=== PATIENT | female | born 1985 | race African-American/Black ===

== ENCOUNTER 2019-12-26 11:44 | Emergency (ER) | payer MEDICAID ==
[~2019-12-26] VITALS: Ht 165.1 cm; Wt 54.4 kg
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
--- NOTE | 2019-12-26 11:52 | NUR ---
DR MCCURDY AT BEDSIDE FOR EVAL.
[2019-12-26] MEDS ORDERED: ACETAMINOPHEN 325 MG TABLET ONE (11:55)
[2019-12-26] MEDS ORDERED: ACETAMINOPHEN 325 MG TABLET PO ONE (12:00)
--- NOTE | 2019-12-26 12:00 | NUR ---
PT TO RADIOLOGY FOR C SPINE CT AND CHEST XRAY VIA [facility].
[2019-12-26] MEDS ORDERED: KETOROLAC TROMETHAMINE INJ 30 MG/ML VIAL IM ONE (13:00)
[2019-12-26] MEDS ORDERED: KETOROLAC TROMETHAMINE 15 MG/ML VIAL ONE (13:01)
--- NOTE | 2019-12-26 13:08 | NUR ---
PT PROVIDED W/ SOFT COLLAR. DISCHARGE HOME IN STABLE CONDITION.
[2019-12-26 13:10] VITALS: BP 108/73
== END 2019-12-26 13:11 | disposition home or self-care (01) ==
LOC: ER 11:50
DX: S13.8XXA Sprain of joints and ligaments of other parts of neck, initial encounter (principal); V49.49XA Driver injured in collision with other motor vehicles in traffic accident, initial encounter; Y93.89 Activity, other specified; Y92.488 Other paved roadways as the place of occurrence of the external cause; Y99.8 Other external cause status
CPT/HCPCS: 71045; 72125; 96372; 99284; J1885